=== PATIENT | male | born 1995 | race Caucasian/White ===

== ENCOUNTER → 2017-12-18 | Outpatient (CLI) | payer OTHER ==
--- NOTE | 2017-12-18 16:20 | RADIOLOGY IMAGING REPORT ---
FACILITY: [facility] [place] PATIENT NAME: Doug Milton : 1995 MR: [id number] V: [id number] EXAM DATE: ORDERING PHYSICIAN: BRENDEN JIMÉNEZ TECHNOLOGIST: Location: [facility] Patient: Doug Milton : 1995 Visit/Account:[id number] Date of Sevice: 12/18/2017 TESTICULAR HISTORY: Right testicular pain and swelling x2 days COMPARISON: FINDINGS: Testes: The right testicle measures 4.7 x 2.2 x 3.2 centers. The left testicle measures 4.9 x 2.5 x 2.7 cm Symmetric and unremarkable blood flow documented by color and Duplex Doppler ultrasound. Epididymides: Head of the epididymis on the right appears prominent, hypervascular and heterogeneous. The head of the epididymis on the left appears unremarkable. Blood flow is unremarkable in each ep ididymis by color Doppler ultrasound. Hydrocele: Tiny bilaterally Varicocele: None. IMPRESSION: The head epididymis on the right appears prominent, hypervascular and heterogeneous. This may be rel ated to epididymitis. Tiny hydroceles bilaterally Report Dictated By: Kathya Felder MD at 12/18/2017 2:55 PM Report E-Signed By: Kathya Felder MD at 12/18/2017 4:16 PM WSN:[email or web address]
== END ==
LOC: US 13:16
PROVIDERS: ATTEND Physician Assistant
DX: N43.3 Hydrocele, unspecified (principal)
CPT/HCPCS: 76870